=== PATIENT | female | born 1975 | race Caucasian/White ===

== ENCOUNTER → 2018-01-15 | Outpatient (CLI) | payer OTHER | LOC: BMCIMAGING 17:11 | PROVIDERS: ATTEND Family Medicine | DX: M79.604 Pain in right leg (principal); M24.852 Other specific joint derangements of left hip, not elsewhere classified ==

== ENCOUNTER 2018-01-16 12:47 | Emergency (ER) | payer OTHER ==
--- NOTE | 2018-01-16 13:23 | EDPHY ---
H & P Stated Complaint: right hip pain starting Thursday, not trauma - Personal History LMP (Females 10-55): 15-21 Days Ago - Medical/Surgical History Hx Asthma: No Hx Chronic Respiratory Disease: No Hx Diabetes: No Hx Cardiac Disease: No Hx Renal Disease: No Hx Cirrhosis: No Hx Alcoholism: No Hx HIV/AIDS: No Hx Splenectomy or Spleen Trauma: No Other PMH: siezures - Social History Smoking Status: Never smoked Time Seen by Provider: 01/16/18 13:22 Constitutional: Initial Vital Signs Temperature (C) 36.5 C 01/16/18 12:49 Heart Rate 61 01/16/18 12:49 Respiratory Rate 18 01/16/18 12:49 Blood Pressure 142/87 H 01/16/18 12:49 O2 Sat (%) 100 01/16/18 12:49 O2 Delivery Mode Room Air Allergies/Adverse Reactions: erythromycin base Allergy (Verified 01/16/18 12:49) Home Medications: Medication Instructions Recorded LAMICTAL ODT 05/12/10 Hydrocodone/APAP 5/325 [Gary 1 - 2 each PO Q4-6PRN PRN #7 tab 01/16/18 5/325] Ibuprofen [Motrin] 800 mg PO Q8 #20 tab 01/16/18 Medical Decision Making ED Course/Re-evaluation: CHIEF COMPLAINT: Right hip pain HISTORY OF PRESENT ILLNESS: The patient is a 42 y/o female complaining of right hip pain, onset 3 days ago. When she woke up Thursday morning, 3 days ago, she developed a stabbing pain in the front of her right with an ache that radiated to the rest of her thigh. After she developed the pain she saw her chiropractor who massaged and preformed dry needling of the right leg. Yesterday she went to [facility] and had an x-ray taken of the hip. The patient states that the radiologist who read the hip x-ray thought her hip might be infectious. She is able to walk and bear weight on the right hip. After taking ibuprofen and Tylenol she started to have alleviation of her symptoms. She denies having cold- like symptoms right now, but she thought she had a cold 1.5 weeks ago. No chest pain, shortness of breath, abdominal pain, urinary or bowel complaints, numbness , paresthesias, fevers. REVIEW OF SYSTEMS: A comprehensive 10 system review of systems is otherwise negative aside from elements mentioned in the history of present illness and medical decision making. PHYSICAL EXAM: HR, BP, O2 Sat, RR. Temp noted General Appearance: Alert, well hydrated, appropriate, and non-toxic appearing. Head: Atraumatic without scalp tenderness or obvious injury Eyes: Pupils equal, round, reactive to light and accommodation, EOMI, no trauma , no injection. Ears: Clear bilaterally, no perforation, normal landmarks Nose: Atraumatic, no rhinorrhea, clear. Throat: There is no erythema or exudates, no lesions, normal tonsils, mucus membranes moist. Neck: Supple, 2+ carotid upstroke, nontender, no lymphadenopathy. Respiratory: No retractions, no distress, no wheezes, and no accessory muscle use. Lungs are clear to auscultation bilaterally. Cardiovascular: Regular rate and rhythm, no murmurs, rubs, or gallops. Bilateral carotid, radial, dorsalis pedis, and posterior tibial pulses intact. Good capillary refill all extremities. Gastrointestinal: Abdomen is soft, nontender, non-distended, no masses, no rebound, no guarding, no peritoneal signs. Musculoskeletal: Normal active ROM of all extremities, atraumatic. Neurological: Alert, appropriate, and interactive. The patient has normal DTRs and non-focal cranial nerves, motor, sensory, and cerebellar exam. Skin: No rashes, good turgor, no nodules on palpation. Past medical history: Seizure Past surgical history: Denies Family history: Denies Social history: at bedside, lives in [place], not employed DIAGNOSTICS/PROCEDURES/CRITICAL CARE TIME: Hip MRI: DIFFERENTIAL DIAGNOSIS: The differential diagnosis for the patient's hip pain included but was not limited to fracture, ligamentous injury, contusion, muscular strain. MEDICAL DECISION MAKING: The patient is a 42 y/o female presenting with improving right hip pain, onset 3 days ago. She had a hip x-ray preformed yesterday and was told she might have an infectious hip. On exam she has normal ROM and can bear weight; she also has a sokaogon hip. She does not appear systemically ill. Right hip MRI ordered. 1500: Patient care turned over to Dr. Felder at shift change; hip MRI still pending. (Andrew Blake) Other Provider: Care assumed at 3:15 p.m. From Lou with plan for MRI of the hip and disposition pending results. 1705: hip joint effusion on right side, [place]. No fracture. Discussed with the patient, examined personally at this time. Results discussed with the patient, CBC sed rate CRP ordered. Normal range of motion of the hip, skin not red, afebrile. She couldn't walk 2 days ago because of pain, but better now. Wants to take her own ibuprofen which I think is reasonable. Declined additional pain medications. 172: discussed with Levar rich with Suzanne, CBC/ESR/CRP and dc with followup if negative, no aspiration if all labs negative. 1813: ESR and CRP elevated; Discussed with Chilo for IR, will try to aspirate hip. Discussed with the patient at this time as well, disposition pending synovial fluid results. 2111: Discussed with Bradley SAUNDERS; he discussed with Suzanne; symptomatic care, unlikely to be septic joint, outpatient followup. Patient states she is comfortable with this plan. Crystals and culture pending. Only 143 WBC. (Erick Felder) - Data Points Laboratory Results: Laboratory Results 01/16/18 17:25 01/16/18 19:35 Fl Pathologist Review Pending Synovial Source SYNOVIAL Synovial Color RED (CLS/PALE YL) Synovial Appearance HAZY H (CLEAR) Synovial WBC 143 /mm3 /mm3 (0-150) Synovial RBC 84013 /mm3 H /mm3 (0-0) Synovial Neutrophils 86 % H % (0-25) Synovial Lymphocytes 11 % % Synov Monos/Macrophage 3 % % Synovial Crystals Pending Microbiology Results: MICROBIOLOGY 01/16/18 19:35 Hip - Aspirate Gram Stain - Final Departure - Departure Disposition: Home, Routine, Self-Care Clinical Impression: Right hip pain Condition: Good Instructions: Hip Pain (ED) Additional Instructions: 1. Follow up with an orthopedic surgeon within one week. 2. Return to the emergency department for worsening pain, swelling, numbness, weakness or other concerns. 3. Take Gary as prescribed. 4. Use ibuprofen in addition to prescribed pain medication as directed for pain. Referrals: Caitlyn Everett MD [Primary Care Provider] - As per Instructions Clinton Palacios MD [Medical Doctor] - As per Instructions Prescriptions: Hydrocodone/APAP 5/325 [Gary 5/325] 1 - 2 each PO Q4-6PRN PRN #7 tab PRN Reason: Pain, Moderate Ibuprofen [Motrin] 800 mg PO Q8 #20 tab Report Scribed for: Andrew Blake Report Scribed by: Ginger Wood Date of Report: 01/16/18 Time of Report: 13:32
[2018-01-16] MEDS ORDERED: GADOBUTROL 10 ML VIAL IVP ONE (15:29)
[2018-01-16 17:37] LABS: PLATELET COUNT 263 10^3/uL (150-400)
[2018-01-16] MEDS ORDERED: LIDOCAINE 1% 300 MG/30 ML SDV ONE (18:45)
[2018-01-16] MEDS ORDERED: IOPAMIDOL (ISOVUE 370) 100 ML BTL IV ONE (19:21)
[2018-01-16 21:34] VITALS: BP 116/89
== END 2018-01-16 21:34 | disposition home or self-care (01) ==
PROC: 0S9B3ZZ Drainage of Left Hip Joint, Percutaneous Approach (ICD-10-PCS; principal; 2018-01-16)
DX: M25.551 Pain in right hip (principal); M25.451 Effusion, right hip
CPT/HCPCS: A9585; Q9967